=== PATIENT | female | born 1960 | race Caucasian/White ===

== ENCOUNTER 2022-02-01 06:59 | Emergency (ER) | payer OTHER ==
[2022-02-01] MEDS: oxyCODONE 5 MG TABLET PO STA (07:49)
--- NOTE | 2022-02-01 08:15 | ED Physician Documentation ---
PD HPI UPPER EXT INJURY - Stated complaint Stated Complaint: FALL/LT ARM INJ - Chief complaint Chief Complaint: Ext Problem - History obtained from History obtained from: Patient - History of Present Illness Location: Left, Forearm - Additonal information Additional information: Patient is a 61-year-old female with no significant past medical history presenting for evaluation of Pain to left forearm after falling this morning. She walked out to get her newspaper And slipped and fell, landing backwards. She did not hit her head or have LOC. She braced her fall with her left arm. She denies pain or injury elsewhere. She took an Aleve prior to arrival and her drove her in. Review of Systems Constitutional: denies: Fever Cardiac: denies: Chest pain / pressure Respiratory: denies: Dyspnea GI: denies: Abdominal Pain : denies: Dysuria Musculoskeletal: reports: Extremity pain. denies: Back pain Neurologic: denies: Headache, Head injury PD PAST MEDICAL HISTORY - Past Medical History Past Medical History: No Cardiovascular: None Respiratory: None Neuro: None Endocrine/Autoimmune: None GI: None PUMP RUNNER: None : None HEENT: None Psych: None Musculoskeletal: None Derm: None - Past Surgical History Past Surgical History: No - Present Medications Home Medications: Ambulatory Orders Medication Instructions Recorded Confirmed Oxycodone HCl/Acetaminophen 1 each PO Q6H PRN #14 tablet 02/01/22 [Percocet 5-325 mg Tablet] - Allergies Allergies/Adverse Reactions: Allergies Allergy/AdvReac Type Severity Reaction Status Date / Time No Known Drug Allergies Allergy Verified 02/01/22 07:09 - Social History Does the pt smoke?: No Smoking Status: Never smoker Does the pt drink ETOH?: Yes Does the pt have substance abuse?: No - Immunizations Immunizations are current?: Yes - POLST Patient has POLST: No PD ED PE NORMAL - General General: Alert and oriented X 3, No acute distress, Well developed/nourished - HEENT HEENT: Atraumatic - Neck Neck: Supple, no meningeal sign, No bony TTP, C-Spine cleared by NEXUS criteria - Cardiac Cardiac: RRR, No murmur - Respiratory Respiratory: No respiratory distress, Clear bilaterally - Derm Derm: Warm and dry - Extremities Extremities: Other (Swelling and tenderness to distal left radius, normal range of motion at left elbow And shoulder,No bony tenderness to left hand, strong radial pulse, motor and sensation grossly intact). No: No deformity Results - Vitals Vitals: Vital Signs - 24 hr 02/01/22 02/01/22 02/01/22 07:06 08:42 09:08 Temperature 36.6 C Heart Rate 72 70 66 Respiratory 17 14 19 Rate Blood Pressure 190/72 H 145/60 H O2 Saturation 99 100 02/01/22 10:00 Temperature Heart Rate 78 Respiratory 18 Rate Blood Pressure 144/60 H O2 Saturation 100 Oxygen O2 Source Room air Procedures - Reduction Body part reduced: Left, Wrist Fracture or dislocation: Dislocation Anesthesia: Hematoma block, Other (Procedural sedation) Reduction aftercare: NV intact, Xray confirms reduction, Alignment improved, Splint applied, Sling, Patient tolerated well - Procedural sedation Sedation prep: Informed consent, Time out completed, Last meal (last night; coffee this AM), PE performed, ASA 1 - healthy Sedation Medications: propofol Mallampati classification: II Patient status during sedation: Drowsy, Responds to tactile, Vitals remained stable, Maintained airway, Recovered uneventfully Sedation recovery: Recovered uneventfully, Back to baseline Time in sedation (Minutes): 8 PD Medical Decision Making - ED course Complexity details: reviewed results, re-evaluated patient ED course: Patient presenting for evaluation of a left wrist injury after falling. She is found to have a distal radius fracture. Fracture did require reduction Which was done under procedural sedation. Postreduction films were improved. Patient returned to her baseline. I reviewed discharge instructions along with need for follow-up with orthopedic surgery.Patient did not have pain or tenderness elsewhere. She is counseled on concerning symptoms to return for. Departure - Departure Disposition: 01 Home, Self Care Clinical Impression: Distal radius fracture, left Qualifiers: Encounter type: initial encounter Fracture type: closed Fracture morphology: Colles' Qualified Code(s): S52.532A - Colles' fracture of left radius, initial encounter for closed fracture Fracture of ulnar styloid Qualifiers: Encounter type: initial encounter Fracture type: closed Fracture alignment: nondisplaced Laterality: left Qualified Code(s): S52.615A - Nondisplaced fracture of left ulna styloid process, initial encounter for closed fracture Condition: Stable Instructions: ED Fx Colles Wrist Redu Requ, ED Sedation Procedural Discon Follow-Up: Anil Joel MD [Provider Admit Priv/Credential] - Prescriptions: Oxycodone HCl/Acetaminophen [Percocet 5-325 mg Tablet] 1 each PO Q6H PRN #14 tablet PRN Reason: pain Comments: You have a broken left wrist. This fracture did require some reduction in the emergency department.Please keep the splint on until you are seen by the orthopedic doctor in follow-up.Please keep the splint clean and dry. I would also recommend keeping the arm elevated. I have sent a narcotic pain medication to [facility] pharmacy. Please utilize this as directed. I am prescribing a short course of narcotic pain medication for you. These are potentially dangerous and addictive medications that should be used carefully. These medications may constipate you. Take an [id number] stool softener (docusate) twice daily with plenty of water while taking these medications. If you go 24 hours without a bowel movement, take [id number] miralax, per package instructions. Do not drink or drive while taking these medications. If you received narcotic or sedating medications while in the emergency department, do not drive for 24 hours. Store this medication in a safe, secure place and out of reach of children. It is a violation of federal law to give or sell this medication to another person or to use in a manner other than prescribed. The ED will not refill narcotic prescriptions, including prescriptions lost or stolen. To dispose of unwanted medications: 1. [facility] at [address] [facility] [address] in [place] has a medication drop box. They accept prescription medications (in pill form) Monday through Monday 9:00 a.m. to 5:00 p.m. 2. The [facility] accepts prescription medications (in pill form only) for disposal year round. Call for more information. 3. Contact the [facility] for the next [facility] sponsored prescription drug collection event. , [phone], or [phone]; Note that many narcotic pain relievers also contain Tylenol/acetaminophen. Please ensure that your total dose of acetaminophen from all sources does not exceed 3 g (3000 mg) per day. Return to the ER with any worsening pain or new pains or with any concerns. Discharge Date/Time: 12/20/22 10:30
[2022-02-01] MEDS: PROPOFOL 200 MG/20 ML VIAL IVP STA (08:41)
--- NOTE | 2022-02-01 08:47 | XRAY Report ---
PROCEDURE: Forearm LT INDICATIONS: SLIPPED/FELL/INJURED/PAIN L FOREARM TECHNIQUE: 2 views of the forearm were acquired. COMPARISON: None FINDINGS: Bones: Acute comminuted and impacted fracture involving distal radius is seen with fracture line exte nding to radiocarpal joint space. There is dorsal displacement and angulation at distal radial fractu re site. Fracture of the ulnar styloid tip is also seen. No suspicious bony lesions. Soft tissues: No suspicious soft tissue calcifications or masses. IMPRESSION: Acute comminuted, impacted and displaced intra-articular fracture of distal radius. Acute slightly di splaced fracture involving ulnar styloid tip. No discrepancies. Reviewed by: Navin Grayson MD on 02/01/2022 8:45 AM PST Approved by: Navin Grayson MD on 02/01/2022 8:45 AM PST Station ID: [id number]
--- NOTE | 2022-02-01 09:01 | XRAY Report ---
PROCEDURE: Wrist 2 View LT INDICATIONS: post splint TECHNIQUE: 2 views of the wrist were acquired. COMPARISON: Earlier forearm study from the same day FINDINGS: Bones: There is interval reduction of earlier noted comminuted and displaced intra-articular fracture of distal radius with improved wrist alignment. Fracture of ulnar styloid is again seen. No new frac ture or dislocation. No suspicious bony lesions. Soft tissues: No suspicious soft tissue calcifications. IMPRESSION: Interval reduction of earlier noted impacted and displaced intra-articular fracture of distal radius with improved wrist alignment. No new fracture or dislocation. Reviewed by: Navin Grayson MD on 02/01/2022 8:59 AM PST Approved by: Navin Grayson MD on 02/01/2022 8:59 AM PST Station ID: [id number]
[2022-02-01 10:21] VITALS: BP 144/60
== END 2022-02-01 10:30 | disposition home or self-care (01) ==
LOC: ED 06:59
DX: S52.532A Colles' fracture of left radius, initial encounter for closed fracture (principal); S52.615A Nondisplaced fracture of left ulna styloid process, initial encounter for closed fracture; W18.30XA Fall on same level, unspecified, initial encounter; Y93.01 Activity, walking, marching and hiking
CPT/HCPCS: 25605; 94770; 99284; 99285

== ENCOUNTER 2023-10-15 17:10 | Emergency (ER) | payer OTHER ==
--- NOTE | 2023-10-15 17:28 | ED Physician Documentation ---
PD HPI LOWER EXT INJURY - Stated complaint Stated Complaint: FALL/LT HIP PX - Chief complaint Chief Complaint: Trauma Ext - History obtained from History obtained from: Patient - Additional information Additional information: She fell on her left hip while chasing her dog who pulled her earlier this afternoon and has severe left hip pain. No other injuries. No significant comorbidities. She is not able to walk or bear weight. PD PAST MEDICAL HISTORY - Past Medical History Cardiovascular: None Respiratory: None Neuro: None Endocrine/Autoimmune: None GI: None ASSISTED LIVING DIRECTOR: None : None HEENT: None Psych: None Musculoskeletal: None Derm: None - Past Surgical History Past Surgical History: No HEENT: Other - Present Medications Home Medications: Ambulatory Orders Medication Instructions Recorded Confirmed Oxycodone HCl/Acetaminophen 1 each PO Q6H PRN #14 tablet 02/01/22 [Percocet 5-325 mg Tablet] - Allergies Allergies/Adverse Reactions: Allergies Allergy/AdvReac Type Severity Reaction Status Date / Time No Known Drug Allergies Allergy Verified 10/15/23 17:16 - Social History Does the pt smoke?: No Smoking Status: Never smoker Does the pt drink ETOH?: Yes Does the pt have substance abuse?: No - Immunizations Immunizations are current?: Yes - POLST Patient has POLST: No PD ED PE NORMAL - Vitals Vital signs reviewed: Yes - General General: Alert and oriented X 3, No acute distress - Abdomen Abdomen: Non tender - Back Back: No spinal TTP - Extremities Extremities: Other (The left hip is not shortened but is quite tender and she cannot range it at all. She is holding it somewhat flexed.) - Neuro Neuro: Alert and oriented X 3, Normal speech Results - Vitals Vitals: Vital Signs - 24 hr 10/15/23 10/15/23 17:16 19:32 Temperature 36.4 C L Heart Rate 87 81 Respiratory 18 14 Rate Blood Pressure 179/55 H 184/84 H O2 Saturation 98 99 Oxygen O2 Source Room air - Labs Labs: Laboratory Tests 10/15/23 10/15/23 10/15/23 17:38 17:38 17:38 WBC 10.0 RBC 4.38 Hgb 12.5 Hct 38.7 MCV 88.4 MCH 28.5 MCHC 32.3 RDW 12.9 Plt Count 229 MPV 9.4 Neut # (Auto) 8.2 H Lymph # (Auto) 1.1 L Jerome # (Auto) 0.6 Eos # (Auto) 0.0 Baso # (Auto) 0.0 Absolute Nucleated RBC 0.00 Nucleated RBC % 0.0 PT 12.5 INR 1.1 Sodium 139 Potassium 3.4 L Chloride 103 Carbon Dioxide 25 Anion Gap 11.0 BUN 14 Creatinine 0.9 Estimated GFR (MDRD) 63 L Glucose 130 H Calcium 9.5 - Rads (name of study) X-rays of the left hip demonstrate an acute comminuted left femoral subcap ital neck fracture with mild displacement Relevant Findings:: Final report received, EMP independent interpretation of test PD Medical Decision Making - ED course ED course: She presents with isolated left hip injury and is found to have a left subcapital hip fracture. We do not have orthopedics collection technician so transfer will be necessary. We called [facility] and they are full. She was medicated with Dilaudid and Toradol with excellent effect. CBC, INR, and CMP unremarkable save potassium 0.1 below normal. I did order a dose of oral potassium. I spoke with Dr. Patricio Vasquez at [facility] who accepts for the operative portion of her admission but defers to the hospitalist for admission. (8:40 PM) She was accepted to the [facility] hospitalist service by Dr. Stephen Newton at 9:05 PM. Cobras are completed and she is stable for transfer. Departure - Departure Disposition: 02 Transfer Acute Care Hosp Clinical Impression: Subcapital fracture of left hip Qualifiers: Encounter type: initial encounter Fracture type: closed Qualified Code(s): S72.012A - Unspecified intracapsular fracture of left femur, initial encounter for closed fracture Condition: Stable Forms: PCP List
[2023-10-15 17:49] LABS: BASOPHILS % (AUTO) 0.2 %; EOSINOPHILS % (AUTO) 0.3 %; HCT - HEMATOCRIT 38.7 % (37.0-47.0); HGB - HEMOGLOBIN 12.5 g/dL (12.0-16.0); LYMPHOCYTES # (AUTO) 1.1 10^3/uL (1.5-3.5); LYMPHOCYTES % (AUTO) 10.6 %; MEAN CORPUSCULAR HEMOGLOBIN 28.5 pg (27.0-31.0); MEAN CORPUSCULAR HGB CONC 32.3 g/dL (32.0-36.0); MEAN CORPUSCULAR VOLUME 88.4 fL (81.0-99.0); MEAN PLATELET VOLUME 9.4 fL (7.9-10.8); MONOCYTES # (AUTO) 0.6 10^3/uL (0.0-1.0); MONOCYTES % (AUTO) 6.3 %; NEUTROPHILS # (AUTO) 8.2 10^3/uL (1.5-6.6); PLT - PLATELET COUNT 229 10^3/uL (130-450); RED BLOOD COUNT 4.38 10^6/uL (4.20-5.40); RED CELL DISTRIBUTION WIDTH 12.9 % (12.0-15.0)
[2023-10-15 17:51] LABS: INR 1.1 (0.8-1.2); PT - PROTHROMBIN TIME 12.5 secs (9.9-12.6)
[2023-10-15] MEDS: HYDROmorphone 1 MG/ML CARPUJECT IVP STA (17:55)
[2023-10-15] MEDS: KETOROLAC 15 MG/ML VIAL IVP STA (17:55)
[2023-10-15 17:58] LABS: CALCIUM 9.5 mg/dL (8.5-10.3); CREATININE 0.9 mg/dL (0.6-1.3); POTASSIUM 3.4 mmol/L (3.5-4.5)
--- NOTE | 2023-10-15 18:45 | XRAY Report ---
PROCEDURE: Hip w/Pelvis 2-3V LT INDICATIONS: hip fracture TECHNIQUE: 2 views of the hip were acquired. COMPARISON: None. FINDINGS: Bones: Acute, comminuted, impacted fracture of the left femoral subcapital neck with mild displaceme nt. No dislocation. Mild bilateral femoroacetabular joint space narrowing and juxta-articular osteoph ytosis. Degenerative changes of the lower lumbar spine. No suspicious bony lesions. Soft tissues: No suspicious soft tissue calcifications or masses. IMPRESSION: 1.Acute, comminuted, impacted fracture of the left femoral subcapital neck with mild displacement. 2.Mild bilateral hip osteoarthritis. Reviewed by: Red Staples MD on 10/15/2023 5:43 PM AZIZA Approved by: Red Staples MD on 10/15/2023 5:43 PM AZIZA Station ID: [id number]
[2023-10-15 21:52] VITALS: BP 188/86; O2SAT 98
[2023-10-15] MEDS: POTASSIUM CHLORIDE 20 MEQ TABLET PO STA ×2 (22:07→22:08)
== END 2023-10-15 22:26 | disposition short-term general hospital (02) ==
LOC: ED 17:10
DX: S72.012A Unspecified intracapsular fracture of left femur, initial encounter for closed fracture (principal); W18.30XA Fall on same level, unspecified, initial encounter; Y93.K1 Activity, walking an animal
CPT/HCPCS: 36415; 73502; 80048; 85025; 85610; 96374; 99285; A9270; J1170

== ENCOUNTER 2023-10-15 22:25 | Outpatient (CLI) | payer OTHER | END 2023-10-15 22:26 | disposition short-term general hospital (02) | LOC: EMS 22:25 | PROVIDERS: ATTEND Emergency Medicine | DX: S72.002A Fracture of unspecified part of neck of left femur, initial encounter for closed fracture (principal); W18.39XA Other fall on same level, initial encounter | CPT/HCPCS: A0425; A0427 ==